=== PATIENT | male | born 1970 | race African-American/Black ===

== ENCOUNTER 2018-08-29 21:51 | Emergency (ER) | payer SELFPAY ==
[2018-08-29 22:23] LABS: #Basophils 0.1 thou/uL (0.0-0.2); #Eosinphils 0.1 thou/uL (0.0-0.7); #Lymphocytes 2.1 thou/uL (1.20-3.40); #Monocytes 0.3 thou/uL (0.11-0.59); #Neutrophils 3.2 thou/uL (1.40-6.50); %Eosinophils 1.9 % (0.0-10.0); %Lymphocytes 35.8 % (21.0-51.0); %Monocytes 5.9 % (0.0-10.0); %Neutrophils 55.4 % (42.0-75.0); Hemoglobin 13.7 g/dL (14.0-18.0); Mean Corpuscular HGB CONC 34.1 g/dL (32.0-36.0); Mean Corpuscular Hemoglobin 33.2 pg (27.0-31.0); Mean Corpuscular Volume 97.4 fL (78.0-98.0); Mean Platelet Volume 7.9 fL (7.4-10.4); Platelet Count 207 thou/uL (130-400); Red Blood Cell (RBC) Count 4.13 mill/uL (4.70-6.10); White Blood Cell (WBC) Count 5.8 thou/uL (4.8-10.8)
--- NOTE | 2018-08-29 22:27 | RAD ---
FEXAM: Portable chest PROVIDED CLINICAL HISTORY: Chest pain COMPARISON: None FINDINGS: Cardiac and mediastinal silhouette is within normal limits. No focal consolidation, pleural fluid or pneumothorax evident. IMPRESSION: No evidence for an acute cardiopulmonary process.
[2018-08-29 22:33] LABS: ALT (SGPT) 18 U/L (8-55); AST (SGOT) 24 U/L (5-34); Albumin 4.1 g/dL (3.5-5.0); Alkaline Phosphatase 66 U/L (40-150); Anion Gap 12 mmol/L (10-20); BUN (Urea Nitrogen) 10 mg/dL (8.9-20.6); Bilirubin, Total 0.3 mg/dL (0.2-1.2); Calc. Creatinine Clearance 0 mL/min (70-130); Carbon Dioxide 26 mmol/L (22-29); Chloride 102 mmol/L (98-107); Estimated GFR-MDRD 66; Globulin 2.8 g/dL (2.4-3.5); Glucose 118 mg/dL (70-105); Lipase 42 U/L (8-78); Protein, Total 6.9 g/dL (6.0-8.3); Sodium 136 mmol/L (136-145)
[2018-08-30] MEDS ORDERED: Lidocaine Viscous Sol 2% 15 ml UD Cup ONE (00:33)
[2018-08-30] MEDS ORDERED: Mag-Al 1200 mg/1200 mg/30 ML UDCUP ONE (00:33)
== END 2018-08-30 01:51 | disposition home or self-care (01) ==
LOC: ERS 21:51
DX: R07.9 Chest pain, unspecified (principal); I10 Essential (primary) hypertension; E78.5 Hyperlipidemia, unspecified; F17.210 Nicotine dependence, cigarettes, uncomplicated
CPT/HCPCS: 71045; 80053; 83690; 84484; 85025; 93005

== ENCOUNTER 2020-06-05 11:34 | Outpatient (CLI) | payer OTHER ==
--- NOTE | 2020-06-05 13:00 | RAD ---
PA AND LATERAL VIEWS CHEST: HISTORY: Disability exam. Coronary artery bypass graft surgery. COMPARISON: 08/29/2018. FINDINGS: Interval changes of median sternotomy are seen. The heart size is at upper limits of normal. NO lob ar consolidation, pneumothorax, rubi pulmonary edema, or pleural effusions are seen. No acute osseo us abnormalities are noted. IMPRESSION: No acute process. POS: OFF
== END 2020-06-05 11:35 | disposition home or self-care (01) ==
LOC: BICRAD 11:34
PROVIDERS: ATTEND Internal Medicine
DX: Z02.71 Encounter for disability determination (principal)
CPT/HCPCS: 71046